=== PATIENT | male | born 1950 | race Caucasian/White ===

== ENCOUNTER → 2017-09-20 | Outpatient (CLI) | payer OTHER ==
[~2017-09-20] MED LIST: ASPIR 8181 MG PO; CIPRO500 MG PO; COZAAR 25 MG TA25 M1 PO; FENOFIBRATE160 MG PO; FLAGYL500 MG PO; JARDIANCE10 MG PO; METFORMIN HCL500 MG; POTASSIUM99 MG PO; PRAVACHOL20 MG PO
== END ==
LOC: M.RAD 16:47
DX: R10.32 Left lower quadrant pain (principal)

== ENCOUNTER 2017-09-21 14:59 | Inpatient (IN) | payer OTHER ==
[~2017-09-21] VITALS: Ht 175.3 cm; Wt 107.5 kg
[2017-09-21 15:08] VITALS: BP 159/84
[2017-09-21 15:23] LABS: URINE BLOOD TRACE (Negative); URINE CLARITY CLEAR; URINE COLOR YELLOW; URINE GLUCOSE-RANDOM 3+ (Negative); URINE KETONES 2+ (Negative); URINE LEUKOCYTES NEGATIVE (Negative); URINE NITRITE NEGATIVE (Negative); URINE PROTEIN NEGATIVE (Negative); URINE SPECIFIC GRAVITY 1.025 (1.005-1.030); URINE UROBILINOGEN 0.2 E.U./dl (0.2-1.0)
[2017-09-21 15:30] LABS: ICTOTEST (BILI CONFIRMATORY) Negative (Negative); URINE BILIRUBIN 2+ (Negative)
[2017-09-21] MEDS ORDERED: ASPIR 8181 MG PO (15:30)
[2017-09-21] MEDS ORDERED: METFORMIN HCL500 MG (15:30)
[2017-09-21] MEDS ORDERED: COZAAR 25 MG TA25 M1 PO (15:31)
[2017-09-21] MEDS ORDERED: FENOFIBRATE160 MG PO (15:31)
[2017-09-21] MEDS ORDERED: JARDIANCE10 MG PO (15:31)
[2017-09-21] MEDS ORDERED: PRAVACHOL20 MG PO (15:31)
[2017-09-21 15:35] LABS: HEMATOCRIT 46.8 % (42.0-52.0); HEMOGLOBIN 15.3 gm/dL (14.0-18.0); MCH 26.5 pg (26.0-34.0); MCHC 32.6 g/dL (28.0-37.0); MCV 81.3 fL (80.0-100.0); MPV 8.1 fl. (7.2-11.1); NUCLEATED RBCS 0 /100WBC; PLATELET COUNT* 198 thou/uL (150-400); RBC 5.75 mil/uL (4.50-6.00); RDW-CV 15.8 % (10.5-14.5); WBC 11.4 thou/uL (4.0-11.0)
[2017-09-21 15:44] LABS: CALCIUM 9.3 mg/dL (8.5-10.1); CREATININE 1.1 mg/dL (0.6-1.3); POTASSIUM 3.1 mmol/L (3.5-5.1)
[2017-09-21 15:48] LABS: ALBUMIN 3.3 g/dL (3.4-5.0); TOTAL BILIRUBIN 0.6 mg/dL (<0.1-1.0); TOTAL PROTEIN 7.7 g/dL (6.4-8.2)
[2017-09-21 16:03] LABS: ABSOLUTE BASOPHILS 0.1 thou/uL (0.0-0.2); ABSOLUTE EOSINOPHILS 0.1 thou/uL (0.0-0.7); ABSOLUTE NEUTROPHILS 9.1 thou/uL (1.6-8.1)
[2017-09-21 16:04] LABS: PLATELET ESTIMATE ADEQUATE
--- NOTE | 2017-09-21 19:19 | NUR ---
Report taken from Megan.
[2017-09-21 21:32] VITALS: BP 165/86
[2017-09-21] MEDS ORDERED: POTASSIUM99 MG PO (21:38)
[2017-09-21 22:00] VITALS: BP 139/76
[2017-09-22 03:53] LABS: HEMATOCRIT 42.7 % (42.0-52.0); HEMOGLOBIN 14.1 gm/dL (14.0-18.0); MCH 26.6 pg (26.0-34.0); MCHC 33.2 g/dL (28.0-37.0); MCV 80.2 fL (80.0-100.0); MPV 8.1 fl. (7.2-11.1); RBC 5.32 mil/uL (4.50-6.00); RDW-CV 15.6 % (10.5-14.5); WBC 10.5 thou/uL (4.0-11.0)
[2017-09-22 04:06] LABS: CALCIUM 8.1 mg/dL (8.5-10.1); CREATININE 1.1 mg/dL (0.6-1.3); POTASSIUM 3.5 mmol/L (3.5-5.1)
[2017-09-22 04:54] VITALS: BP 131/69
--- NOTE | 2017-09-22 05:18 | NUR ---
ASSUMED PT CARE AT 2200. PT IS A&OX4, PT IS ON RA SATTING MID TO HIGH 90'S. PT HAS IVF INFUSING PER MAR. PT IS NPO EXCEPT ICE CHIPS. ADMISSION WAS COMPLETED CHARTED. PT IS UP AD CAT[place] IN HIS ROOM. APPEARS TO BE STABLE ON HIS FEET. HOME EMDICATIONS RESTARTED. BED IN LOW POSITION, CALL LIGHT IN REACH. HOURLY ROUNDING COMPLETED FOR PT SAFETY.
[2017-09-22 08:00] VITALS: BP 146/75
--- NOTE | 2017-09-22 10:36 | NUR ---
Pt is A&O. Resides at home with his . Independent with ADLS, continues to work outside of the home. No DME. No hx of HH or SNF. Pt anxious to dc home. No needs anticipated.
[2017-09-22] MEDS ORDERED: FLAGYL500 MG PO (12:28)
[2017-09-22] MEDS ORDERED: CIPRO500 MG PO (12:28)
[2017-09-22 16:00] VITALS: BP 161/79
--- NOTE | 2017-09-22 20:26 | NUR ---
I ASSUMED CARE OF THE PATIENT AT 0700. HE IS ALERT AND ORIENTED X4 AND UP AD CATARINA. METFORMIN IS TO BE HELD FOR 48 HOURS D/T CONTRAST IN CT. BED IS IN THE LOW LOCKED POSITION AND CALL LIGHT IS IN REACH. AFTER A NEAR DISCHARGE, PAIN WAS UNCONTROLLABLE AND PATIENT'S DISCHARGE WAS CANCELED. HOURLY ROUNDING WAS COMPLETED AND PAIN WAS MANAGED WITH PRN MEDS. IS AT THE BEDSIDE. WILL CONTINUE TO MONITOR. IV WAS D/C'D, SO A NEW LINE WAS PLACED WELL. DIET WAS ADVANCED TO CLEAR AND NOT TOLERATED, SO HE MUST STAY ON CLEARS UNTIL TOLERATED BEFORE GOING TO SOFT.
[2017-09-22 20:30] VITALS: BP 113/77
--- NOTE | 2017-09-23 04:32 | NUR ---
PATIENT HAS REMAINED ALERT AND ORIENTED X 4 THROUGHOUT THE SHIFT AND RESTING QUIETLY ON HOURLY ROUNDS. UP IN ROOM WITH STEADY GAIT. MINAMAL DISCOMFORT VOICED OF THIS WRITING AND HAS DENIED NEED FOR PAIN OR NAUSEA MEDICATION. IVF'S PER ORDERS. VITAL SIGNS STABLE. CONTINUE TO MONITOR.
[2017-09-23 05:27] LABS: ABSOLUTE LYMPHOCYTES 0.5 thou/uL (0.8-5.3); ABSOLUTE MONOCYTES 0.5 thou/uL (0.0-1.2); ABSOLUTE NEUTROPHILS 8.2 thou/uL (1.6-8.1); BASOPHILS 0.1 %; EOSINOPHILS 0.3 %; HEMATOCRIT 42.3 % (42.0-52.0); HEMOGLOBIN 13.7 gm/dL (14.0-18.0); LYMPHOCYTES 5.2 %; MCH 26.5 pg (26.0-34.0); MCHC 32.4 g/dL (28.0-37.0); MCV 81.7 fL (80.0-100.0); MONOCYTES 5.9 %; MPV 7.7 fl. (7.2-11.1); NUCLEATED RBCS 0 /100WBC; PLATELET COUNT* 171 thou/uL (150-400); POLYS 88.5 %; RBC 5.18 mil/uL (4.50-6.00); RDW-CV 15.7 % (10.5-14.5); WBC 9.3 thou/uL (4.0-11.0)
[2017-09-23 05:39] LABS: CALCIUM 8.5 mg/dL (8.5-10.1); CREATININE 0.8 mg/dL (0.6-1.3); POTASSIUM 3.5 mmol/L (3.5-5.1)
[2017-09-23 07:40] VITALS: BP 128/74; BP 149/64
[2017-09-23 07:50] VITALS: BP 149/64
--- NOTE | 2017-09-23 07:50 | NUR ---
PT UP IN CHAIR AWAITING BREAKFAST. NOT SMALL SPOT OF GREEN ON SHEETS REMOVED SHEETS, PT STATED THAT HE WAS INC YESTERDAY. NO FURTHER COMPLAINTS OF PAINOR DISCOMFORT OFFERED.
[2017-09-23 16:00] VITALS: BP 154/82
--- NOTE | 2017-09-23 17:41 | NUR ---
PT DID WELL. NO COMPLAINTS OF PAIN OR NAUSEA. DIARRHEA PERSISTS. PT TOLERATING PO FLUIDS WELL. PT SHOWERED TODAY. FAMILY WAS HERE TO SEE PT THIS AFTERNOON.PT IS PROGRESSING TOWARDS GOALS.
[2017-09-23 19:35] VITALS: BP 153/78
--- NOTE | 2017-09-24 04:46 | NUR ---
PATIENT ALERT AND ORIENTED X 4 THROUGHOUT THE SHIFT AND RESTING WELL AT HOURLY ROUNDS. UP WITH STEADY GAIT INDEPENDENTLY IN THE ROOM.NO REPORTED STOOLS TONIGHT. PASSING SOME GAS. DENIES PAIN/NAUSEA. IVF'S AND ANTIBIOTICS PER ORDERS. VITAL SIGNS STABLE. CONTINUE TO MONITOR.
[2017-09-24 05:02] LABS: HEMATOCRIT 40.6 % (42.0-52.0); HEMOGLOBIN 13.3 gm/dL (14.0-18.0); MCH 26.6 pg (26.0-34.0); MCHC 32.8 g/dL (28.0-37.0); MPV 7.8 fl. (7.2-11.1); RBC 5.02 mil/uL (4.50-6.00); RDW-CV 15.6 % (10.5-14.5); WBC 9.2 thou/uL (4.0-11.0)
[2017-09-24 05:16] LABS: CALCIUM 7.6 mg/dL (8.5-10.1); CREATININE 0.7 mg/dL (0.6-1.3); POTASSIUM 3.2 mmol/L (3.5-5.1)
[2017-09-24 09:00] VITALS: BP 161/86
--- NOTE | 2017-09-24 09:25 | NUR ---
PT'S MEDICAL CHART REVIEWED AND STATUS DISCUSSED W/ NSG. PT DEMO INDEPENDENT AND STABLE TRANSFERS AND GAIT W/O DME SUPPORT. PT ABLE TO NAVIGATE 3 STEPS INDEP. NO FURTHER ACUTE PT SERVICES ARE INDICATED.
--- NOTE | 2017-09-24 10:36 | NUR ---
ASSUMED CARES OF PT AT 0700. PT IN BED, BED IN LOW LOCKED POSITION, CALL BUTTON IN PT REACH, PT UP INDEPENDENTLY, STRONG/STURDY GAIT. PT A&O X4, HRRR PER AUSCULTATION, LCTAB, VSS ON RA, B/P OCC. HYPERTENSIVE (161/86). SKIN INTACT, NO EDEMA NOTED. LEFT FA 20 GAUGE IV PATENT WITH NS INFUSING 100 ML/HR. HOURLY ROUNDING AND ACCU CHECKS CONTINUE. CLEAR LIQUID DIET TOLERATED. PT COOPERATIVE AND PLEASANT, DENIES PAIN THIS MORNING ROUNDS. PT PROGRESSING TOWARDS GOAL. WILL CONTINUE TO MONITOR PT STATUS AND PROGRESS.
[2017-09-24 15:29] VITALS: BP 161/86
[2017-09-24 16:13] VITALS: BP 161/86
--- NOTE | 2017-09-24 16:18 | NUR ---
PT CLEARED FOR DISCHARGE. IV REMOVED. VS REMAIN STABLE. PERSONAL BELONGINGS PACKED AND ROOM CHECKED. DISCHARGE EDUCATION, STROKE EDUCATION, PRESCRIPTION EDUCATION ALL REVIEWED AND SIGNED. QUESTIONS ANSWERED. FOLLOW UP APPTS REVIEWED. PT ESCORTED VIA AMBULATION WITH NURSING STAFF AND SPOUSE TO DRIVE HOME IN CAR. PT STABLE, NO PAIN REPORTED, PT SMILING AND TALKATIVE, STATED HE IS READY TO GO HOME. DISCHARGE COMPLETED AT 1604.
== END 2017-09-24 16:04 | disposition home or self-care (01) | DRG 391 ==
LOC: M.ERS 14:59 → M.TBA-ER 17:58 → M.ORTHSURG 17:58
PROVIDERS: Nurse Practitioner Family; Surgery; ADMIT Internal Medicine
DX: K57.20 Diverticulitis of large intestine with perforation and abscess without bleeding (principal); K65.8 Other peritonitis; K56.7 Ileus, unspecified; R65.10 Systemic inflammatory response syndrome (SIRS) of non-infectious origin without acute organ dysfunction; I10 Essential (primary) hypertension; E11.9 Type 2 diabetes mellitus without complications; E78.00 Pure hypercholesterolemia, unspecified; Z79.82 Long term (current) use of aspirin; Z79.899 Other long term (current) drug therapy; Z83.79 Family history of other diseases of the digestive system

== ENCOUNTER → 2017-09-21 | Outpatient (CLI) | payer OTHER | LOC: M.CT 12:22 | DX: K76.0 Fatty (change of) liver, not elsewhere classified (principal); N28.89 Other specified disorders of kidney and ureter; K57.12 Diverticulitis of small intestine without perforation or abscess without bleeding ==

== ENCOUNTER → 2017-12-20 | Outpatient (CLI) | payer OTHER ==
[2017-12-20 10:07] LABS: POTASSIUM 3.6 mmol/L (3.5-5.1)
== END ==
LOC: M.LAB 01:27
PROVIDERS: Anesthesiology
DX: Z01.812 Encounter for preprocedural laboratory examination (principal); E11.9 Type 2 diabetes mellitus without complications

== ENCOUNTER → 2017-12-25 | Outpatient (CLI) | payer OTHER ==
[2017-12-25 09:56] LABS: ABSOLUTE EOSINOPHILS 0.1 thou/uL (0.0-0.7); ABSOLUTE LYMPHOCYTES 1.2 thou/uL (0.8-5.3); ABSOLUTE MONOCYTES 0.3 thou/uL (0.0-1.2); ABSOLUTE NEUTROPHILS 4.7 thou/uL (1.6-8.1); BASOPHILS 0.6 %; EOSINOPHILS 2.1 %; HEMATOCRIT 49.4 % (42.0-52.0); HEMOGLOBIN 16.3 gm/dL (14.0-18.0); MCH 27.5 pg (26.0-34.0); MCHC 32.9 g/dL (28.0-37.0); MCV 83.7 fL (80.0-100.0); MONOCYTES 5.4 %; MPV 8.1 fl. (7.2-11.1); NUCLEATED RBCS 0 /100WBC; PLATELET COUNT* 169 thou/uL (150-400); POLYS 73.9 %; RBC 5.91 mil/uL (4.50-6.00); RDW-CV 15.4 % (10.5-14.5); WBC 6.4 thou/uL (4.0-11.0)
[2017-12-25 10:02] LABS: POTASSIUM 3.9 mmol/L (3.5-5.1)
[2017-12-25 10:20] LABS: TOTAL BILIRUBIN 0.3 mg/dL (<0.1-1.0); TOTAL PROTEIN 7.4 g/dL (6.4-8.2)
[2017-12-25 10:59] LABS: ESR (SEDRATE) 3 mm/hr (0-20)
== END ==
LOC: M.CT 09:35 → M.LAB 09:45 → M.CT 11:00
PROVIDERS: Internal Medicine Gastroenterology
DX: N28.1 Cyst of kidney, acquired (principal); K76.0 Fatty (change of) liver, not elsewhere classified; K57.92 Diverticulitis of intestine, part unspecified, without perforation or abscess without bleeding; I25.10 Atherosclerotic heart disease of native coronary artery without angina pectoris; R93.8 Abnormal findings on diagnostic imaging of other specified body structures